=== PATIENT | male | born 1995 | race Caucasian/White ===

== ENCOUNTER 2016-03-11 23:36 | Emergency (ER) | payer OTHER ==
[2016-03-12] MEDS ORDERED: Azithromycin 250 MG TAB ONE (00:05)
[2016-03-12] MEDS ORDERED: Benzonatate 100 MG CAP ONE (00:05)
--- NOTE | 2016-03-12 00:26 | ERRECORD ---
[facility] EMERGENCY RECORD HPI COUGH (TueMar 12, 2016 00:05 LLDO) CHIEF COMPLAINT: Patient presents for evaluation of cough, non-productive, Denies barking cough, Patient presents for evaluation of cough now causing sore throat. has not noted fever. no headache. see triage note, No Hemoptysis present. HISTORIAN: History provided by patient. LOCATION: Symptoms are generalized. QUALITY: Denies tightness, Denies wheezing. SEVERITY: Maximum severity of symptoms moderate, Currently symptoms are moderate. TIME COURSE: Gradual onset of symptoms, Symptoms are worsening, are constant. ASSOCIATED WITH: Associated symptoms reviewed, No associated dyspnea on exertion, No associated fever, No associated increased inhaler use, No associated nausea, Associated with upper respiratory infection, No associated wheezing, No associated weakness. EXACERBATED BY: Patient's condition exacerbated by deep breaths, Patient's condition exacerbated by exercise. RELIEVED BY: Patient's condition relieved by nothing. ROS CONSTITUTIONAL: Historian reports fatigue. (TueMar 12, 2016 00:07 LLDO) EYES: Negative eye review of systems, Historian denies eye pain, denies eye redness, denies eye discharge. (TueMar 12, 2016 00:13 LLDO) ENT: Historian reports sore throat. (TueMar 12, 2016 00:07 LLDO) RESPIRATORY: Historian reports cough, denies shortness of breath, denies sputum, denies stridor, denies wheezing. (TueMar 12, 2016 00:07 LLDO) MUSCULOSKELETAL: Negative musculoskeletal review of systems, Historian denies arthralgias, denies fall, denies injury, denies myalgias. (TueMar 12, 2016 00:13 LLDO) NEUROLOGIC: Negative neurologic review of systems. (TueMar 12, 2016 00:07 LLDO) ALLERGIC/IMMUNOLOGIC: Normal allergy/immunologic system review, Historian denies eczema, denies environmental allergies, denies food allergies. (TueMar 12, 2016 00:13 LLDO) PSYCHIATRIC: Negative psychiatric review of systems, Historian denies alcohol abuse, denies anxiety, denies depression, denies drug abuse, denies hallucinations. (TueMar 12, 2016 00:13 LLDO) NOTES: All systems reviewed, negative except as described above. (TueMar 12, 2016 00:07 LLDO) PAST MEDICAL HISTORY MEDICAL HISTORY: adhd. VERIFIED 03/11/16. (23:47 MHEB) MALE SURGICAL HISTORY: EYE SURGERY, Surgical history of tonsillectomy. VERIFIED 03/11/16. (23:47 MHEB) PSYCHIATRIC HISTORY: Psychiatric history includes, &a-1R&a+25V*p+0X*j1764Z*c202B*c15G*c2P*p-0X&a-25V&a+1R Name: Rashid Pyle : 1995 M20 MedRec: [id number] AcctNum: [id number] Prepared: TueMar 12, 2016 00:21 by Interface Page 1 of 4 pMD [facility] EM[facility]GENC[facility] RECORD bipolar disorder, Psychiatric history includes, bipolar disorder, Notes: odd. NOT TAKING HIS MEDICINES. (23:47 MHEB) SOCIAL HISTORY: Patient denies alcohol use, Patient denies drug use, Patient has no smoking history, Patient denies alcohol use, Patient denies drug use, Patient has no smoking history, Patient denies alcohol use, Patient denies drug use, Patient has no smoking history, Patient denies alcohol use, Patient denies drug use, Patient currently uses tobacco, smokes cigarettes, Occasional or some day smoker. (23:47 MHEB) NOTES: Nursing records reviewed, Agree with nursing records, Medication list reviewed. (TueMar 12, 2016 00:12 LLDO) KNOWN ALLERGIES Galntyayp-Uivpkbf-Iwvfpuk Vacc Penicillins CURRENT MEDICATIONS No recorded medications VITAL SIGNS (23:42 MHEB) VITAL SIGNS: BP: 138/78, Pulse: 81, Resp: 18, Temp: 97.6 (Tympanic), Pain: 5, O2 sat: 97 on Room Air, Time: 03/11/2016 23:42. PHYSICAL EXAM CONSTITUTIONAL: Vital Signs Reviewed, Patient afebrile, Pulse normal, Blood pressure normal, Respiratory rate normal, Normal pulse oximetry, Patient appears, uncomfortable, Patient appears, in moderate pain distress, Patient alert and oriented to person, place and time, Nursing notes reviewed. (TueMar 12, 2016 00:10 LLDO) HEAD: Head exam normal, Head exam included findings of head atraumatic, normocephalic. (TueMar 12, 2016 00:13 LLDO) EYES: Eye exam normal, Eye exam included findings of eyelids normal to inspection, Pupils equally round and reactive to light, Extraocular muscles intact. (TueMar 12, 2016 00:13 LLDO) ENT: Ear exam normal, Nose exam normal, Pharynx, injected bilaterally, with swelling bilaterally, symmetrical, Uvula exam normal, Sinus exam included findings of frontal sinuses normal, maxillary sinuses normal. (TueMar 12, 2016 00:10 LLDO) NECK: Neck exam included findings of normal range of motion, Trachea midline, Thyroid normal, no meningeal signs, no cervical adenopathy. (TueMar 12, 2016 00:10 LLDO) RESPIRATORY CHEST: Respiratory exam included findings of no respiratory distress, No wheezing, Rales present, Chest exam included findings of chest movement symmetrical, Chest expansion equal, no tenderness, RALES MILD AND SCATTERED. (TueMar 12, 2016 00:10 LLDO) CARDIOVASCULAR: Cardiovascular exam included findings of heart &a-1R&a+25V*p+0X*m1440T*c202B*c15G*c2P*p-0X&a-25V&a+1R Name: Pretty Pylejuanjo Madsen : 1995 M20 MedRec: [id number] AcctNum: [id number] Prepared: TueMar 12, 2016 00:21 by Interface Page 2 of 4 pMD [facility] RECORD rate regular rate and rhythm, Heart sounds normal, Point of maximal impulse normal. (TueMar 12, 2016 00:10 LLDO) BACK: Back exam normal, Back exam included findings of normal inspection, range of motion normal. (TueMar 12, 2016 00:13 LLDO) UPPER EXTREMITY: Upper extremity exam normal, Upper extremity exam included findings of inspection normal, Range of motion normal. (TueMar 12, 2016 00:13 LLDO) LOWER EXTREMITY: Lower extremity exam normal, Lower extremity exam included findings of inspection normal, Range of motion normal. (TueMar 12, 2016 00:13 LLDO) NEURO: Oskar coma scale 15, Neuro exam findings include patient oriented to, Speech, Gait abnormal. (TueMar 12, 2016 00:10 LLDO) SKIN: Skin exam normal, Skin exam included findings of skin warm, dry, and normal in color, no rash. (TueMar 12, 2016 00:13 LLDO) PSYCHIATRIC: Psychiatric exam normal, Psychiatric exam included findings of patient oriented to person place and time, Normal affect, Judgment normal. (TueMar 12, 2016 00:13 LLDO) MEDICATION ADMINISTRATION SUMMARY Drug Name: Zithromax oral, Dose Ordered: 500 mg, Route: Oral, Status: Given, Time: 00:12 03/12/2016, Drug Name: Jan Alicea, Dose Ordered: 200 mg, Route: Oral, Status: Given, Time: 00:11 03/12/2016, Detailed record available in Medication Service section. PROBLEM LIST No recorded problems DIAGNOSIS (23:54 LLDO) FINAL: PRIMARY: Acute URI. PRESCRIPTION (23:57 LLDO) albuterol sulfate inhalation: HFA AEROSOL WITH ADAPTER (GRAM) : 90 mcg : INHALATION : Quantity: 1-2 Unit: puff(s) Route: INHALATION Schedule: every 4 hours prn Dispense: 1 Unit: vial(s) May substitute. Refills: 2 . Phenergan DM: SYRUP : : ORAL : Quantity: 1-2 Unit: teaspoon Route: ORAL Schedule: every 4 hours prn Dispense: 180 Unit: mL May substitute. Refills: No Refills . Zithromax Z-Tommie: CAPSULE (HARD, SOFT, ETC.) : 250 mg : ORAL : Quantity: * Unit: Route: ORAL Schedule: See Notes Dispense: 1PK May substitute. Refills: No Refills . NOTES: TAKE DIRECTED ON PACKAGE. DISPOSITION &a-1R&a+25V*p+0X*u9553F*c202B*c15G*c2P*p-0X&a-25V&a+1R Name: Rashid Pyle Tena : 1995 M20 MedRec: [id number] AcctNum: [id number] Prepared: TueMar 12, 2016 00:21 by Interface Page 3 of 4 pMD [facility] EMERGENC[facility] RECORD PATIENT: Disposition Type: Discharge, Disposition: *Discharge Home. (23:54 LLDO) Patient left the department. (TueMar 12, 2016 00:14 EB) Sweeney: LLDO=MD Agapito, Fredo MHEB=ELDON Null, Estee &a-1R&a+25V*p+0X*f1192W*c202B*c15G*c2P*p-0X&a-25V&a+1R Name: Rashid Pyle : 1995 M20 MedRec: [id number] AcctNum: [id number] Prepared: TueMar 12, 2016 00:21 by Interface Page 4 of 4 pMD MTDD
--- NOTE | 2016-03-12 00:37 | PICIS ---
[facility] EMERGENCY RECORD TRIAGE (TueMar 11, 2016 23:44 MHEB) TRIAGE NOTES: COUGH. (TueMar 11, 2016 23:44 MHEB) PATIENT: NAME: Rashid Pyle, AGE: 20, GENDER: male, : Tue1995, TIME OF GREET: TueMar 11, 2016 23:37, PREFERRED LANGUAGE: Albanian, ETHNICITY: Not or , ECODE BILLING MAP: [facility], SSN: [id number], Zip Code: [address], KG WEIGHT: 108.86, PHONE: CELL, , , PERSON ID: [id number], PCP: MD Cuevas Olayemi. (TueMar 11, 2016 23:44 MHEB) COMPLAINT: SORE THROAT/COUGH. (TueMar 11, 2016 23:44 MHEB) ADMISSION: URGENCY: 4 Non Urgent, ADMISSION SOURCE: Home, TRANSPORT: Walk-in, BED: TRIAGE. (TueMar 11, 2016 23:44 MHEB) ASSESSMENT: Assessment: COUGHING AT WORK AND SENT HERE TO SEE MD BEFORE HE CAN RETURN. (23:47 MHEB) PAIN: Patient complains of pain described as, aching, Location THROAT, Pain is constant. (23:47 MHEB) IMMUNIZATIONS: Flu vaccine up to date, Tetanus not up to date. (23:47 MHEB) SIRS SCORING: Heart Rate 55-109 (0), Temp range 96.8-101.1 (0), respiratory rate 12-24 (0), Mental Status altered: no (0). (23:47 MHEB) TRIAGE SCREENING: Patient denies suicidal ideation, Patient denies presence of domestic violence. (23:47 MHEB) PROVIDERS: TRIAGE NURSE: Estee Null RN. (TueMar 11, 2016 23:44 MHEB) VITAL SIGNS: BP 138/78, Pulse 81, Resp 18, Temp 97.6, (Tympanic), Pain 5, O2 Sat 97, on Room Air, Time 03/11/2016 23:42. (23:42 MHEB) PREVIOUS VISIT ALLERGIES: Ditnvgdep-Knfnkhh-Jqveurh Vacc, Penicillins. (TueMar 11, 2016 23:44 MHEB) Jmzumidap-Ongpemj-Jwtnlax Vacc, Penicillins. (23:47 MHEB) KNOWN ALLERGIES Rbeuchgae-Zrqrfmf-Gnwcbgo Vacc Penicillins CURRENT MEDICATIONS No recorded medications VITAL SIGNS (23:42 MHEB) VITAL SIGNS: BP: 138/78, Pulse: 81, Resp: 18, Temp: 97.6 (Tympanic), Pain: 5, O2 sat: 97 on Room Air, Time: 03/11/2016 23:42. NURSING PROCEDURE: DISCHARGE NOTE (TueMar 12, 2016 00:12 MHEB) DISCHARGE: Patient discharged to home, ambulating without assistance, driving self, unaccompanied, Summary of Care printed/ provided, Discharge instructions given to patient, Prescriptions given and instructions on side effects given, Above person(s) verbalized understanding of discharge instructions and follow-up care, Patient treated and evaluated by physician. &a-1R&a+25V*p+0X*i9291S*c202B*c15G*c2P*p-0X&a-25V&a+1R Name: Rashid Pyle : 1995 M20 MedRec: [id number] AcctNum: [id number] Prepared: TueMar 12, 2016 00:27 by Interface Page 1 of 6 pMD [facility] EMERGENCY RECORD BELONGINGS: Belongings and valuables with patient at time of discharge include:, Belongings remain with patient, Valuables remain with patient. MEDICATION ADMINISTRATION SUMMARY Drug Name: Zithromax oral, Dose Ordered: 500 mg, Route: Oral, Status: Given, Time: 00:12 03/12/2016, Drug Name: Tessalon Perles, Dose Ordered: 200 mg, Route: Oral, Status: Given, Time: 00:11 03/12/2016, Detailed record available in Medication Service section. MEDICATION SERVICE Jan Alicea: Order: Fatoumatasalon Perles (benzonatate) - Dose: 200 mg : Oral Schedule: Now Ordered by: Fredo Altman MD Entered by: Fredo Altman MD [facility] Mar 11, 2016 23:54 , Acknowledged by: Estee Null RN TueMar 12, 2016 00:10 Documented as given by: Estee Null RN TueMar 12, 2016 00:11 Patient, Medication, Dose, Route and Time verified prior to administration. Amount given: 200mg, Site: Medication administered P.O., Correct patient, time, route, dose and medication confirmed prior to administration, Patient advised of actions and side-effects prior to administration, Allergies confirmed and medications reviewed prior to administration, Patient in position of comfort, Side rails up, Cart in lowest position, Family at bedside. Zithromax oral: Order: Zithromax oral (azithromycin) - Dose: 500 mg : Oral Schedule: Now Ordered by: Fredo Altman MD Entered by: Fredo Altman MD [facility] Mar 11, 2016 23:54 , Acknowledged by: Estee Null RN TueMar 12, 2016 00:11, Acknowledged by: Estee Null RN TueMar 12, 2016 00:11. Zithromax oral: Order: Zithromax oral (azithromycin) - Dose: 500 mg : Oral Schedule: Now Ordered by: Fredo Altman MD Entered by: Fredo Altman MD [facility] Mar 11, 2016 23:54 , Acknowledged by: Estee Null RN TueMar 12, 2016 00:11, Acknowledged by: Estee Null RN TueMar 12, 2016 00:11. Zithromax oral: Order: Zithromax oral (azithromycin) - Dose: 500 mg : Oral Schedule: Now Ordered by: Fredo Altman MD Entered by: Fredo Altman MD [facility] Mar 11, 2016 23:54 , Acknowledged by: Estee Null RN TueMar 12, 2016 00:11 Documented as given by: Estee Null RN TueMar 12, 2016 00:12 Patient, Medication, Dose, Route and Time verified prior to &a-1R&a+25V*p+0X*c9643S*c202B*c15G*c2P*p-0X&a-25V&a+1R Name: Rashid Pyle : 1995 M20 MedRec: [id number] AcctNum: [id number] Prepared: TueMar 12, 2016 00:27 by Interface Page 2 of 6 pMD [facility] EMERGENCY RECORD administration. Amount given: 500mg, Site: Medication administered P.O., Correct patient, time, route, dose and medication confirmed prior to administration, Patient advised of actions and side-effects prior to administration, Allergies confirmed and medications reviewed prior to administration, Patient in position of comfort, Side rails up, Cart in lowest position, Family at bedside. HPI COUGH (TueMar 12, 2016 00:05 LLDO) CHIEF COMPLAINT: Patient presents for evaluation of cough, non-productive, Denies barking cough, Patient presents for evaluation of cough now causing sore throat. has not noted fever. no headache. see triage note, No Hemoptysis present. HISTORIAN: History provided by patient. LOCATION: Symptoms are generalized. QUALITY: Denies tightness, Denies wheezing. SEVERITY: Maximum severity of symptoms moderate, Currently symptoms are moderate. TIME COURSE: Gradual onset of symptoms, Symptoms are worsening, are constant. ASSOCIATED WITH: Associated symptoms reviewed, No associated dyspnea on exertion, No associated fever, No associated increased inhaler use, No associated nausea, Associated with upper respiratory infection, No associated wheezing, No associated weakness. EXACERBATED BY: Patient's condition exacerbated by deep breaths, Patient's condition exacerbated by exercise. RELIEVED BY: Patient's condition relieved by nothing. ROS CONSTITUTIONAL: Historian reports fatigue. (TueMar 12, 2016 00:07 LLDO) EYES: Negative eye review of systems, Historian denies eye pain, denies eye redness, denies eye discharge. (TueMar 12, 2016 00:13 LLDO) ENT: Historian reports sore throat. (TueMar 12, 2016 00:07 LLDO) RESPIRATORY: Historian reports cough, denies shortness of breath, denies sputum, denies stridor, denies wheezing. (TueMar 12, 2016 00:07 LLDO) MUSCULOSKELETAL: Negative musculoskeletal review of systems, Historian denies arthralgias, denies fall, denies injury, denies myalgias. (TueMar 12, 2016 00:13 LLDO) NEUROLOGIC: Negative neurologic review of systems. (TueMar 12, 2016 00:07 LLDO) ALLERGIC/IMMUNOLOGIC: Normal allergy/immunologic system review, Historian denies eczema, denies environmental allergies, denies food allergies. (TueMar 12, 2016 00:13 LLDO) PSYCHIATRIC: Negative psychiatric review of systems, Historian denies alcohol abuse, denies anxiety, denies depression, denies drug abuse, denies hallucinations. (TueMar 12, 2016 00:13 LLDO) &a-1R&a+25V*p+0X*k2946R*c202B*c15G*c2P*p-0X&a-25V&a+1R Name: Rashid Pyel : 1995 M20 MedRec: [id number] AcctNum: [id number] Prepared: TueMar 12, 2016 00:27 by Interface Page 3 of 6 pMD [facility] EMERGENCY RECORD NOTES: All systems reviewed, negative except as described above. (TueMar 12, 2016 00:07 LLDO) PAST MEDICAL HISTORY MEDICAL HISTORY: adhd. VERIFIED 03/11/16. (23:47 MHEB) MALE SURGICAL HISTORY: EYE SURGERY, Surgical history of tonsillectomy. VERIFIED 03/11/16. (23:47 MHEB) PSYCHIATRIC HISTORY: Psychiatric history includes, bipolar disorder, Psychiatric history includes, bipolar disorder, Notes: odd. NOT TAKING HIS MEDICINES. (23:47 MHEB) SOCIAL HISTORY: Patient denies alcohol use, Patient denies drug use, Patient has no smoking history, Patient denies alcohol use, Patient denies drug use, Patient has no smoking history, Patient denies alcohol use, Patient denies drug use, Patient has no smoking history, Patient denies alcohol use, Patient denies drug use, Patient currently uses tobacco, smokes cigarettes, Occasional or some day smoker. (23:47 MHEB) NOTES: Nursing records reviewed, Agree with nursing records, Medication list reviewed. (TueMar 12, 2016 00:12 LLDO) PHYSICAL EXAM CONSTITUTIONAL: Vital Signs Reviewed, Patient afebrile, Pulse normal, Blood pressure normal, Respiratory rate normal, Normal pulse oximetry, Patient appears, uncomfortable, Patient appears, in moderate pain distress, Patient alert and oriented to person, place and time, Nursing notes reviewed. (TueMar 12, 2016 00:10 LLDO) HEAD: Head exam normal, Head exam included findings of head atraumatic, normocephalic. (TueMar 12, 2016 00:13 LLDO) EYES: Eye exam normal, Eye exam included findings of eyelids normal to inspection, Pupils equally round and reactive to light, Extraocular muscles intact. (TueMar 12, 2016 00:13 LLDO) ENT: Ear exam normal, Nose exam normal, Pharynx, injected bilaterally, with swelling bilaterally, symmetrical, Uvula exam normal, Sinus exam included findings of frontal sinuses normal, maxillary sinuses normal. (TueMar 12, 2016 00:10 LLDO) NECK: Neck exam included findings of normal range of motion, Trachea midline, Thyroid normal, no meningeal signs, no cervical adenopathy. (TueMar 12, 2016 00:10 LLDO) RESPIRATORY CHEST: Respiratory exam included findings of no respiratory distress, No wheezing, Rales present, Chest exam included findings of chest movement symmetrical, Chest expansion equal, no tenderness, RALES MILD AND SCATTERED. (TueMar 12, 2016 00:10 LLDO) CARDIOVASCULAR: Cardiovascular exam included findings of heart rate regular rate and rhythm, Heart sounds normal, Point of maximal impulse normal. (TueMar 12, 2016 00:10 LLDO) BACK: Back exam normal, Back exam included findings of normal &a-1R&a+25V*p+0X*z3930C*c202B*c15G*c2P*p-0X&a-25V&a+1R Name: Rashid Pyle Tena : 1995 M20 MedRec: [id number] AcctNum: [id number] Prepared: TueMar 12, 2016 00:27 by Interface Page 4 of 6 pMD [facility] EMERGENCY RECORD inspection, range of motion normal. (TueMar 12, 2016 00:13 LLDO) UPPER EXTREMITY: Upper extremity exam normal, Upper extremity exam included findings of inspection normal, Range of motion normal. (TueMar 12, 2016 00:13 LLDO) LOWER EXTREMITY: Lower extremity exam normal, Lower extremity exam included findings of inspection normal, Range of motion normal. (TueMar 12, 2016 00:13 LLDO) NEURO: Oskar coma scale 15, Neuro exam findings include patient oriented to, Speech, Gait abnormal. (TueMar 12, 2016 00:10 LLDO) SKIN: Skin exam normal, Skin exam included findings of skin warm, dry, and normal in color, no rash. (TueMar 12, 2016 00:13 LLDO) PSYCHIATRIC: Psychiatric exam normal, Psychiatric exam included findings of patient oriented to person place and time, Normal affect, Judgment normal. (TueMar 12, 2016 00:13 LLDO) EVENTS TRANSFER: Triage to Emergency Triage. ([facility] Mar 11, 2016 23:44 MHEB) Emergency Triage to Main ED -02. (23:47 MHEB) Removed from Emergency Main ED -02. (TueMar 12, 2016 00:14 MHEB) PROBLEM LIST No recorded problems DIAGNOSIS (23:54 LLDO) FINAL: PRIMARY: Acute URI. DISPOSITION PATIENT: Disposition Type: Discharge, Disposition: *Discharge Home. (23:54 LLDO) Patient left the department. (TueMar 12, 2016 00:14 MHEB) INSTRUCTION (23:58 LLDO) DISCHARGE: BRONCHITIS, ABX TX (ADULT). [facility] [address] [place] [id number], , Follow up with Primary Care Physician in 7-10 days. SPECIAL: Follow-up with your PCP. PRESCRIPTION (23:57 LLDO) albuterol sulfate inhalation: HFA AEROSOL WITH ADAPTER (GRAM) : 90 mcg : INHALATION : Quantity: 1-2 Unit: puff(s) Route: INHALATION Schedule: every 4 hours prn Dispense: 1 Unit: vial(s) May substitute. Refills: 2 . Phenergan DM: SYRUP : : ORAL : Quantity: 1-2 Unit: teaspoon Route: ORAL Schedule: every 4 hours prn Dispense: 180 Unit: mL May substitute. Refills: No Refills . &a-1R&a+25V*p+0X*v5206K*c202B*c15G*c2P*p-0X&a-25V&a+1R Name: Lashanda Rashid J : 1995 M20 MedRec: [id number] AcctNum: [id number] Prepared: TueMar 12, 2016 00:27 by Interface Page 5 of 6 pMD [facility] EMERGENCY RECORD Zithromax Z-Tommie: CAPSULE (HARD, SOFT, ETC.) : 250 mg : ORAL : Quantity: * Unit: Route: ORAL Schedule: See Notes Dispense: 1PK May substitute. Refills: No Refills . NOTES: TAKE DIRECTED ON PACKAGE. IMAGING (TueMar 12, 2016 00:13 MHEB) *SUPPLY CHARGE SHEET: Image captured from scanner. *DISCHARGE INSTRUCTIONS RECEIPT: Image captured from scanner. ADMIN (TueMar 12, 2016 00:13 NKECHI) DIGITAL SIGNATURE: MD Altman Lloyd. Sweeney: NKECHI=MD Altman Lloyd MHEB=ELDON Null, Estee &a-1R&a+25V*p+0X*g9964L*c202B*c15G*c2P*p-0X&a-25V&a+1R Name: Rashid Pyle : 1995 [facility] [place] MedRec: [id number] AcctNum: [id number] Prepared: TueMar 12, 2016 00:27 by Interface Page 6 of 6 pMD [facility] MEDICATION RECONCILIATION You were seen in the Emergency Department on: TueMar 11, 2016 KNOWN ALLERGIES Vdlemxxoj-Empxvud-Jpnjwmo Vacc Penicillins MEDICATIONS GIVEN WHILE IN THE EMERGENCY DEPARTMENT Tessalon Perles (benzonatate) - Dose: 200 milligram(s) : Oral Zithromax oral (azithromycin) - Dose: 500 milligram(s) : Oral Notes from the emergency department Reviewed with patient PRESCRIPTIONS (3) Printed (3) albuterol sulfate inhalation : HFA AEROSOL WITH ADAPTER (GRAM) : 90 mcg : INHALATION Quantity: 1-2, Unit: puff(s), Route: INHALATION, Schedule: every 4 hours prn, Dispense: 1 Unit: vial(s) Phenergan DM : SYRUP : : ORAL Quantity: 1-2, Unit: teaspoon, Route: ORAL, Schedule: every 4 hours prn, Dispense: 180 Unit: milliliter(s) &a-1R&a+25V*p+0X*v7381V*c202B*c15G*c2P*p-0X&a-25V&a+1R Name: Rashid Pyle : 1995 [facility] [place] MedRec: [id number] AcctNum: [id number] Prepared: TueMar 12, 2016 00:27 by Interface pMD [facility]
== END 2016-03-12 00:11 | disposition home or self-care (01) ==
LOC: MADERS 23:36
DX: J06.9 Acute upper respiratory infection, unspecified (principal); F31.9 Bipolar disorder, unspecified; Z90.89 Acquired absence of other organs
CPT/HCPCS: 99283

== ENCOUNTER 2016-04-16 03:12 | Emergency (ER) | payer OTHER ==
[2016-04-16] MEDS ORDERED: Ondansetron ODT 4 MG TAB ONE (03:53)
[2016-04-16 04:01] LABS: Bilirubin Negative (Negative); Blood, Urine Negative (Negative); Clarity Clear (Clear); Glucose, Urine (Dipstick) Negative (Negative); Leukocyte Negative (Negative); Nitrite Negative (Negative); Protein, Urine (Dipstick) Negative (Neg-Trace); Specific Gravity, Urine 1.025 (1.005-1.030); Urobilinogen 0.2 mg/dL (0.2-1.0)
[2016-04-16 04:29] LABS: #Basophils 0.1 thou/uL (0.0-0.2); #Eosinphils 0.5 thou/uL (0.0-0.7); #Lymphocytes 2.8 thou/uL (1.20-3.40); #Monocytes 0.7 thou/uL (0.11-0.59); #Neutrophils 4.2 thou/uL (1.40-6.50); %Basophils 1.7 % (0.0-1.0); %Eosinophils 6.1 % (0.0-10.0); %Lymphocytes 33.5 % (21.0-51.0); %Neutrophils 50.7 % (42.0-75.0); Hemoglobin 15.4 g/dL (14.0-18.0); Manual Diff?? NO; Mean Corpuscular HGB CONC 34.3 g/dL (32.0-36.0); Mean Corpuscular Hemoglobin 28.5 pg (27.0-31.0); Mean Corpuscular Volume 83.1 fl (80.0-94.0); Mean Platelet Volume 6.9 fL (7.4-10.4); Platelet Count 339 thou/uL (130-400); RBC Distribution Width 10.9 % (11.5-14.5); Red Blood Cell (RBC) Count 5.41 mill/uL (4.70-6.10); White Blood Cell (WBC) Count 8.4 thou/uL (4.8-10.8)
[2016-04-16 04:30] LABS: Amphetamine Not Detected (NotDetected); Barbiturates Screen Not Detected (NotDetected); Benzodiazepine Screen Not Detected (NotDetected); Cocaine Metabolite Screen Not Detected (NotDetected); Medtox Control Line Valid? VALID (VALID); Methadone Not Detected (NotDetected); Methamphetamine Not Detected (NotDetected); Opiate Screen Not Detected (NotDetected); Oxycodone Screen Not Detected (NotDetected); Phencyclidine (PCP) Not Detected (NotDetected); THC/Cannabinoid Screen Not Detected (NotDetected); Tricyclic Screen Not Detected (NotDetected)
[2016-04-16 04:31] LABS: Anion Gap 15 mmol/L (10-20); BUN (Urea Nitrogen) 11 mg/dL (8.9-20.6); Calc. Creatinine Clearance 0 mL/min (70-130); Calcium 10.3 mg/dL (7.8-10.44); Carbon Dioxide 27 mmol/L (22-29); Chloride 102 mmol/L (98-107); Estimated GFR-MDRD Greater than 90; Glucose 89 mg/dL (70-105); Sodium 140 mmol/L (136-145)
== END 2016-04-16 05:25 | disposition home or self-care (01) ==
LOC: MADERS 03:12
DX: R53.1 Weakness (principal); E11.649 Type 2 diabetes mellitus with hypoglycemia without coma; J45.909 Unspecified asthma, uncomplicated; F90.9 Attention-deficit hyperactivity disorder, unspecified type; F17.210 Nicotine dependence, cigarettes, uncomplicated; Z79.899 Other long term (current) drug therapy
CPT/HCPCS: 36416; 80048; 80306; 81003; 85025; 99284; 36415-59; Q0162

== ENCOUNTER 2016-04-30 18:15 | Emergency (ER) | payer OTHER | END 2016-04-30 19:56 | disposition left against medical advice (07) | LOC: MADERS 18:15 | DX: Z53.21 Procedure and treatment not carried out due to patient leaving prior to being seen by health care provider (principal) ==